=== PATIENT | female | born 1990 ===

== ENCOUNTER 2018-12-12 02:10 | Inpatient (IN) ==
[2018-12-12] MEDS ORDERED: CLINDAMYCIN INJ 900 MG in PREMIX 1 EACH IV ONE (02:32)
[2018-12-12] MEDS ORDERED: OXYTOCIN/LR 20 UNIT/1,000 ML BAG IV ONE ×2 (02:32→09:26)
[2018-12-12] MEDS: LACTATED RINGERS 1,000 ML IV SCH ×3 (02:38→07:37)
[2018-12-12] MEDS: ONDANSETRON 4 MG/2 ML VIAL IV PRN ×2 (02:54→11:46)
[2018-12-12] MEDS: MEPERIDINE 50 MG/1 ML VIAL IV PRN ×2 (02:54→04:58)
[2018-12-12 02:56] LABS: Basophils % 0.1 % (0.0-0.8); Eosinophils # 0.1 10*3/uL (0.0-0.87); Eosinophils % 1.2 % (0.00-10.9); Hematocrit 37.6 VOL% (35.7-47.0); Hemoglobin 12.5 GM/DL (12.0-16.0); Immature Granulocytes % 0.9 %; Immature Granulocytes Absolute 0.09 #; Lymphocytes # 1.7 10*3/uL (1.4-4.0); Lymphocytes % 16.6 % (21.3-54.2); Mean Corpuscular HGB Conc 33.2 GM/DL (32-36); Mean Corpuscular Volume 89.1 FL (87-102); Neutrophils % 73.2 % (38.7-73.9); Platelet Count 205 T/CUMM (130-400); Red Blood Count 4.22 MC/CUMM (3.8-5.5); Red Cell Distribution Width 13.4 % (9.3-17.3); White Blood Count 10.3 T/CUMM (4-12)
[2018-12-12 03:10] LABS: Albumin 2.8 G/DL (3.4-5.0); Bilirubin,Total 0.4 MG/DL (0.2-1.0); Calcium 9.1 MG/DL (8.5-10.1); Osmolality,Calculated 276.4 MOS/KG (273-304); Total Protein 6.8 G/DL (6.4-8.3)
[2018-12-12] MEDS ORDERED: ePHEDrine 50 MG/ML AMP IV PRN (03:48)
[2018-12-12] MEDS ORDERED: CITRIC ACID/SODIUM CITRATE 30 ML UDCUP PO ONE (03:48)
[2018-12-12] MEDS ORDERED: NALOXONE 0.4 MG/ML VIAL IV PRN (03:48)
[2018-12-12] MEDS ORDERED: hydrOXYzine HCL 25 MG/1 ML VIAL IM PRN (03:48)
[2018-12-12] MEDS ORDERED: diphenhydrAMINE 50 MG/1 ML VIAL IV PRN (03:48)
[2018-12-12] MEDS ORDERED: PROMETHAZINE 25 MG/1 ML VIAL IM PRN (03:48)
[2018-12-12] MEDS ORDERED: FAMOTIDINE 20 MG/2 ML VIAL IV ONE (03:48)
[2018-12-12] MEDS ORDERED: fentaNYL 2 MCG/ROPIV 0.2% EPID 100 ML EPIDURAL SCH (04:00)
[2018-12-12] MEDS ORDERED: OXYTOCIN/LR 30 UNIT/1,000 ML BAG IV ONE (07:06)
[2018-12-12] MEDS ORDERED: miSOPROStoL 200 MCG TABLET ONE (08:01)
[2018-12-12] MEDS ORDERED: METHYLERGONOVINE 0.2 MG/1 ML AMP ONE (08:01)
[2018-12-12] MEDS ORDERED: LIDOCAINE 1% 50 ML VIAL ONE (08:01)
[2018-12-12] MEDS ORDERED: OXYTOCIN/LR 20 UNIT/1,000 ML BAG IV SCH (08:24)
[2018-12-12 09:26] LABS: Cord Arterial Blood HCO3 25.7 MMOL/L
[2018-12-12] MEDS ORDERED: ONDANSETRON 4 MG/2 ML VIAL IV PRN (09:26)
[2018-12-12] MEDS ORDERED: BISACODYL 10 MG SUPP RECTAL PRN (09:26)
[2018-12-12] MEDS ORDERED: HYDROCORTISONE 2.5% RECTAL CREAM 30 GM TUBE TOP PRN (09:26)
[2018-12-12] MEDS ORDERED: LANOLIN 50% CREAM 0.3 OZ TUBE TOP PRN (09:26)
[2018-12-12] MEDS ORDERED: oxyCODONE/ACETAMINOPHEN 5-325 MG TABLET PO PRN (09:26)
[2018-12-12] MEDS ORDERED: WITCH HAZEL PADS 100/JAR TOP PRN (09:26)
[2018-12-12] MEDS ORDERED: ACETAMINOPHEN 325 MG TABLET PO PRN (09:26)
[2018-12-12] MEDS ORDERED: MEASLES/MUMPS/RUBELLA VACCINE 0.5 ML VIAL SUBCUT ONE (09:26)
[2018-12-12] MEDS ORDERED: BENZOCAINE 20%/MENTHOL 0.5% SPRAY 56 GM CAN TOP PRN (09:26)
[2018-12-12] MEDS ORDERED: DIPH/TET/ACEL PERT BOOSTER VACCINE 0.5 ML VIAL IM ONE (09:26)
[2018-12-12] MEDS ORDERED: RHO(D) IMMUNE GLOBULIN 300 MCG SYRINGE IM ONE (09:26)
[2018-12-12 09:30] LABS: Cord Venous Blood HCO3 20.5 MMOL/L; Cord Venous Blood PO2 26.7
[2018-12-12] MEDS ORDERED: METHYLERGONOVINE 0.2 MG/1 ML AMP IM ONE (10:23)
[2018-12-12] MEDS: IBUPROFEN 800 MG TABLET PO PRN ×2 (10:56→20:54)
[2018-12-12] MEDS: DOCUSATE SODIUM 100 MG CAPSULE PO SCH (20:54)
[2018-12-12] MEDS: oxyCODONE/ACETAMINOPHEN 5-325 MG TABLET PO PRN (23:56)
[2018-12-13 05:12] LABS: Basophils % 0.2 % (0.0-0.8); Eosinophils # 0.1 10*3/uL (0.0-0.87); Hematocrit 28.3 VOL% (35.7-47.0); Immature Granulocytes % 0.9 %; Lymphocytes # 2.4 10*3/uL (1.4-4.0); Lymphocytes % 21.7 % (21.3-54.2); Mean Corpuscular HGB Conc 32.9 GM/DL (32-36); Mean Platelet Volume 10.1 FL (9.6-12.0); Monocytes % 6.8 % (1.7-12.7); Neutrophils % 69.4 % (38.7-73.9); Platelet Count 167 T/CUMM (130-400); Red Cell Distribution Width 13.6 % (9.3-17.3); White Blood Count 10.9 T/CUMM (4-12)
[2018-12-13 05:13] LABS: Hemoglobin 9.3 GM/DL (12.0-16.0); Red Blood Count 3.11 MC/CUMM (3.8-5.5)
[2018-12-13] MEDS ORDERED: INFLUENZA VIRUS VACCINE 0.5 ML SYRINGE IM ONE (09:00)
[2018-12-13] MEDS: FERROUS SULFATE 325 MG TABLET PO SCH (09:48)
[2018-12-13] MEDS: DOCUSATE SODIUM 100 MG CAPSULE PO SCH ×2 (09:48→22:35)
[2018-12-13] MEDS: oxyCODONE/ACETAMINOPHEN 5-325 MG TABLET PO PRN (15:22)
[2018-12-13] MEDS: IBUPROFEN 800 MG TABLET PO PRN (22:35)
[2018-12-14 07:25] VITALS: BP 100/54
[2018-12-14] MEDS ORDERED: DIPH/TET/ACEL PERT BOOSTER VACCINE 0.5 ML VIAL IM ONE (08:27)
[2018-12-14] MEDS ORDERED: INFLUENZA VIRUS VACCINE 0.5 ML SYRINGE IM ONE (08:27)
[2018-12-14] MEDS: DOCUSATE SODIUM 100 MG CAPSULE PO SCH (09:34)
[2018-12-14] MEDS: FERROUS SULFATE 325 MG TABLET PO SCH (09:34)
== END 2018-12-14 12:45 | disposition home or self-care (01) | DRG 560 ==
LOC: N.LDOUT 02:10 → N.LD 02:12 → N.OB 12:41
PROVIDERS: ADMIT Obstetrics & Gynecology; ATTEND Obstetrics & Gynecology